=== PATIENT | female | born 1970 | race Caucasian/White ===

== ENCOUNTER 2023-03-21 21:43 | Emergency (ER) | payer BC, SELFPAY ==
[2023-03-21 21:51] VITALS: BP 158/102; PULSE 83; RESP 16; TEMP 36.8; O2SAT 98; BMI 28.4
--- NOTE | 2023-03-21 22:49 | XR_ITS ---
[facility] [place] [id number] Patient Name: LARISSA BLEVINS MRN: [id number] date: 1970 Sex: F Assigned Patient Location: ED.MAIN Current Patient Location: ER Accession/Order Number: [id number] Exam Date: 03/21/2023 23:16 Report Date: 03/21/2023 23:36 At the request of: MAGAN HILLMAN Procedure: XR hip RT 2V w/ pelvis EXAM: XR hip RT 2V w/ pelvis HISTORY: pain COMPARISON: None. TECHNIQUE: 3 view study FINDINGS: There is a left total hip prosthesis. The femoral stem is not completely included on the study. There is significant right hip joint space narrowing with marginal osteophytosis of the right femoral head. The symphysis pubis and sacroiliac joints are satisfactorily maintained. IMPRESSION: Advanced degenerative changes at the right hip. Left total hip arthroplasty without apparent hardware complication. Electronically authenticated by: Shaji VASQUEZ Date: 03/21/2023 23:36
--- NOTE | 2023-03-21 22:50 | ED_ITS ---
HPI - Extremity Injury (Lower) General Chief Complaint: Extremity Injury, Lower Stated Complaint: HIP PAIN Time Seen by Provider: 03/21/23 22:43 Source: patient Mode of arrival: walk-in History of Present Illness HPI Narrative: right hip pain. States she stepped off the riding lawnmower and experienced acute pain of her right hip. States pain radiates to her groin. Has known history of arthritis. Past history of left HERNANDEZ and believes she needs her right hip replaced also. Denies pain of her back. Denies lower extremity numbness or weakness Related Data Allergies Allergy/AdvReac Type Severity Reaction Status Date / Time No Known Drug Allergies Allergy Verified 03/21/23 22:02 Review of Systems ROS Status of ROS 10 or more systems reviewed and unremarkable except as noted in history and below [facility] Social History Smoking status: Never smoker Exam Constitutional Vital Signs - 24 hr 03/21/23 21:51 Temperature 98.3 F Pulse Rate [Monitor Left] 83 Respiratory Rate 16 Blood Pressure [Left Arm] 158/102 H Pulse Oximetry 98 Oxygen Delivery Method Room Air Common normals: no apparent distress and oriented x3 HENMT Common normals: normocephalic and head/scalp atraumatic Eye Common normals: EOMs intact bilaterally and conjunctivae normal Respiratory Common normals: normal respiratory effort, no retractions, no use of accessory muscles and clear to auscultation bilaterally Cardio Common normals: regular rate, regular rhythm, S1 normal heart sound and S2 normal heart sound GI Common normals: Normal to inspection, nondistended, normoactive bowel sounds present and non-tender Back & Pelvis Common normals: no CVA tenderness, thoracic and lumbar spine normal to inspection and no thoracic nor lumbar tenderness Extremity Other: right hip tenderness Neuro Common normals: oriented x3, CN's II-XII intact bilaterally, moves all extremities and no focal motor deficits Psych Appearance: grossly normal Course Vital Signs Vital signs: Vital Signs Temperature 98.3 F 03/21/23 21:51 Pulse Rate 83 03/21/23 21:51 Respiratory Rate 16 03/21/23 21:51 Blood Pressure 158/102 H 03/21/23 21:51 Pulse Oximetry 98 03/21/23 21:51 Oxygen Delivery Method Room Air 03/21/23 21:51 Temperature 98.3 F 03/21/23 21:51 Pulse Rate 83 03/21/23 21:51 Respiratory Rate 16 03/21/23 21:51 Blood Pressure 158/102 H 03/21/23 21:51 Pulse Oximetry 98 03/21/23 21:51 Oxygen Delivery Method Room Air 03/21/23 21:51 MDM - Extremity Injury (Lower) MDM Narrative Medical decision making narrative: presents complaining of pain right hip. xray with advanced arthritis of the hip. Patient feeling better after pain medication in the department. Discharged home to follow up with her doctor Discharge Plan Discharge Chief Complaint: Extremity Injury, Lower Clinical Impression: Arthralgia of hip, right Patient Disposition: Home, Self-Care Instructions: Arthritis (ED) Additional Instructions: follow up with your family doctor Stand Alone Forms: Portal Instructions Referrals: Physician,Non-Staff, MD [Primary Care Provider] - 1 week
[2023-03-21] MEDS: FENTANYL CITRATE/PF 100 MCG/2 ML VIAL IM (22:58)
[2023-03-21 23:43] VITALS: PULSE 63; RESP 16; O2SAT 97
[2023-03-22] MEDS: HYDROCODONE/ACETAMINOPHEN 5-325 MG TABLET 4 TAB PO (00:10)
== END 2023-03-22 00:17 | disposition home or self-care (01) ==
PROVIDERS: Emergency Provider Internal Medicine
DX: M25.551 Pain in right hip (principal); Z96.642 Presence of left artificial hip joint
CPT/HCPCS: 73502; 96372; 99284

== ENCOUNTER 2023-09-16 16:36 | Emergency (ER) | payer BC, SELFPAY ==
[2023-09-16 16:38] VITALS: BP 176/88; PULSE 92; RESP 18; TEMP 36.9; O2SAT 99; BMI 34.5
--- NOTE | 2023-09-16 17:06 | XR_ITS ---
The [address] [address] Patient Name: LARISSA BLEVINS MRN: [id number] date: 1970 Sex: F Assigned Patient Location: ER Current Patient Location: ER Accession/Order Number: [id number] Exam Date: 09/16/2023 17:15 Report Date: 09/16/2023 18:21 At the request of: ANAHY KENNEY Procedure: XR hip LT 2V w/ pelvis EXAM: XR hip LT 2V w/ pelvis, CT hip LT wo con HISTORY: Hip pain COMPARISON: None. TECHNIQUE: AP pelvis and 2 views of the left hip. Axial CT imaging was performed through the left hip. Sagittal and coronal reformatted/reconstructed sequences were performed FINDINGS: The prosthesis is best evaluated on the x-rays secondary to beam hardening metallic artifact. The prosthesis exhibits no fracture, dislocation, subluxation. No adjacent lucency. The [place] bone exhibits no fracture, dislocation, subluxation or osseous lesion. Moderate to severe degenerative changes of the right hip joint consistent with symmetric joint space loss and subchondral changes of the femoral head and acetabulum. The sacroiliac joints and pubic symphysis are unremarkable. No visualized bowel obstruction. The superficial subcutaneous soft tissues are free of edema, hematoma, mass or cyst. No visualized muscle atrophy or fatty infiltration. No osseous lesion, fracture, dislocation or subluxation. Joint spaces are normal. No visualized effusion. No visualized soft tissue edema. XR/XR hip LT 2V w/ pelvis IMPRESSION: No visualized acute abnormality Electronically authenticated by: JOSE J TORRES Date: 09/16/2023 18:21
--- NOTE | 2023-09-16 17:06 | ED.GENADUL1 ---
HPI - General Adult General Chief complaint: Extremity Injury, Lower Stated complaint: LE PAIN Time Seen by Provider: 09/16/23 16:40 Source: patient Mode of arrival: walk-in History of Present Illness HPI narrative: Patient suddenly experienced left hip pain while walking around - no known injury and no slip, trip or fall or other known activity to account for the pain. Describes it as a burning sensation throughout the left hip that then radiates down into the left thigh. She is able to bear weight but it is painful. No low back pain or other symptoms. No new sensory changes or weakness in the left LE. Related Data Previous Rx's Medication Instructions Recorded nabumetone 750 mg tablet 750 mg PO BID PRN pain #14 tabs 09/16/23 Allergies Allergy/AdvReac Type Severity Reaction Status Date / Time No Known Drug Allergies Allergy Verified 03/21/23 22:02 PFSH PFS Social History Smoking status: Never smoker Exam Narrative Exam Narrative: Nurses notes and vital signs reviewed and patient is not hypoxic. afebrile General: Well-appearing and in no apparent distress. Skin: Warm, dry, no pallor noted. No rash. Eye: Pupils are equal, round and EOMI. No scleral icterus. Ears, Nose, Mouth, and Throat: TM are clear, no posterior oropharynx erythema or nasal mucosal hypertrophy, uvula is mid-line Oral mucosa is moist Cardiovascular: Normal peripheral perfusion Respiratory: No accessory muscle use or respiratory distress. Back: No midline lumbar vertebral tenderness. No buttocks or posterior pelvis tenderness Musculoskeletal: Left hip = tender throughout. Decreased ROM due to the pain. Left thigh tenderness without swelling or mass. No calf or popliteal tenderness, no lower extremity edema/swelling Neurological: A&O x4. No cranial nerve dysfunction observed. No truncal ataxia. Moves all extremities. Sensation intact. Psychiatric: Cooperative and interactive. Normal mood and affect. Constitutional Vital Signs, click to edit/add: Last Vital Signs Temp 98.5 F 09/16/23 16:38 Pulse 92 H 09/16/23 16:38 Resp 18 09/16/23 16:38 BP 176/88 H 09/16/23 16:38 Pulse Ox 99 09/16/23 16:38 O2 Del Method Room Air 09/16/23 16:38 Course Vital Signs Vital signs: Vital Signs Temperature 98.5 F 12/16/23 16:38 Pulse Rate 92 H 09/16/23 16:38 Respiratory Rate 18 09/16/23 16:38 Blood Pressure 176/88 H 09/16/23 16:38 Pulse Oximetry 99 09/16/23 16:38 Oxygen Delivery Method Room Air 09/16/23 16:38 Temperature 98.5 F 09/16/23 16:38 Pulse Rate 92 H 09/16/23 16:38 Respiratory Rate 18 09/16/23 16:38 Blood Pressure 176/88 H 09/16/23 16:38 Pulse Oximetry 99 09/16/23 16:38 Oxygen Delivery Method Room Air 09/16/23 16:38 Medical Decision Making MDM Narrative Medical decision making narrative: xrays left hip and pelvis obtained. Xrays did not reveal any pelvic or femur fracture - hardware intact and in place without compromise. Patient sent for CT hip for further evaluation. Neither XR or CT identified anything worrisome to account for the patient's pain. She was discharged home with a work excuse and prescribed Relafen to take for the pain. Encouraged to rest and was given a work excuse. Imaging Data ct hip: Radiologist's impression: Patient Name: LARISSA BLEVINS MRN: [id number] date: 1970 Sex: F Assigned Patient Location: ER Current Patient Location: ER Accession/Order Number: [id number] Exam Date: 09/16/2023 17:58 Report Date: 09/16/2023 18:21 At the request of: ANAHY KENNEY Procedure: CT hip LT wo con EXAM: XR hip LT 2V w/ pelvis, CT hip LT wo con HISTORY: Hip pain COMPARISON: None. TECHNIQUE: AP pelvis and 2 views of the left hip. Axial CT imaging was performed through the left hip. Sagittal and coronal reformatted/reconstructed sequences were performed FINDINGS: The prosthesis is best evaluated on the x-rays secondary to beam hardening metallic artifact. The prosthesis exhibits no fracture, dislocation, subluxation. No adjacent lucency. The [place] bone exhibits no fracture, dislocation, subluxation or osseous lesion. Moderate to severe degenerative changes of the right hip joint consistent with symmetric joint space loss and subchondral changes of the femoral head and acetabulum. The sacroiliac joints and pubic symphysis are unremarkable. No visualized bowel obstruction. The superficial subcutaneous soft tissues are free of edema, hematoma, mass or cyst. No visualized muscle atrophy or fatty infiltration. No osseous lesion, fracture, dislocation or subluxation. Joint spaces are normal. No visualized effusion. No visualized soft tissue edema. IMPRESSION: No visualized acute abnormality Electronically authenticated by: JOSE J TORRES Date: 09/16/2023 18:21 xr hip: My impression: NAD Radiologist's impression: Patient Name: LARISSA BLEVINS MRN: [id number] date: 1970 Sex: F Assigned Patient Location: ER Current Patient Location: ER Accession/Order Number: [id number] Exam Date: 09/16/2023 17:15 Report Date: 09/16/2023 18:21 At the request of: ANAHY KENNEY Procedure: XR hip LT 2V w/ pelvis EXAM: XR hip LT 2V w/ pelvis, CT hip LT wo con HISTORY: Hip pain COMPARISON: None. TECHNIQUE: AP pelvis and 2 views of the left hip. Axial CT imaging was performed through the left hip. Sagittal and coronal reformatted/reconstructed sequences were performed FINDINGS: The prosthesis is best evaluated on the x-rays secondary to beam hardening metallic artifact. The prosthesis exhibits no fracture, dislocation, subluxation. No adjacent lucency. The [place] bone exhibits no fracture, dislocation, subluxation or osseous lesion. Moderate to severe degenerative changes of the right hip joint consistent with symmetric joint space loss and subchondral changes of the femoral head and acetabulum. The sacroiliac joints and pubic symphysis are unremarkable. No visualized bowel obstruction. The superficial subcutaneous soft tissues are free of edema, hematoma, mass or cyst. No visualized muscle atrophy or fatty infiltration. No osseous lesion, fracture, dislocation or subluxation. Joint spaces are normal. No visualized effusion. No visualized soft tissue edema. IMPRESSION: No visualized acute abnormality Electronically authenticated by: JOSE J TORRES Date: 09/16/2023 18:21 Discharge Plan Discharge Chief Complaint: Extremity Injury, Lower Clinical Impression: Acute pain of left hip Patient Disposition: Home, Self-Care Time of Disposition Decision: 18:28 Prescriptions / Home Meds: New nabumetone 750 mg tablet 750 mg PO BID PRN (Reason: pain) Qty: 14 0RF Instructions: Hip Pain (ED) Stand Alone Forms: Portal Instructions Referrals: Physician,Non-Staff, MD [Primary Care Provider] - 1 week
--- NOTE | 2023-09-16 17:34 | CT_ITS ---
The [address] [address] Patient Name: LARISSA BLEVINS MRN: [id number] date: 1970 Sex: F Assigned Patient Location: ER Current Patient Location: Accession/Order Number: [id number] Exam Date: 09/16/2023 17:58 Report Date: 09/16/2023 18:21 At the request of: ANAHY KENNEY Procedure: CT hip LT wo con EXAM: XR hip LT 2V w/ pelvis, CT hip LT wo con HISTORY: Hip pain COMPARISON: None. TECHNIQUE: AP pelvis and 2 views of the left hip. Axial CT imaging was performed through the left hip. Sagittal and coronal reformatted/reconstructed sequences were performed FINDINGS: The prosthesis is best evaluated on the x-rays secondary to beam hardening metallic artifact. The prosthesis exhibits no fracture, dislocation, subluxation. No adjacent lucency. The [place] bone exhibits no fracture, dislocation, subluxation or osseous lesion. Moderate to severe degenerative changes of the right hip joint consistent with symmetric joint space loss and subchondral changes of the femoral head and acetabulum. The sacroiliac joints and pubic symphysis are unremarkable. No visualized bowel obstruction. The superficial subcutaneous soft tissues are free of edema, hematoma, mass or cyst. No visualized muscle atrophy or fatty infiltration. No osseous lesion, fracture, dislocation or subluxation. Joint spaces are normal. No visualized effusion. No visualized soft tissue edema. CT/CT hip LT wo con IMPRESSION: No visualized acute abnormality Electronically authenticated by: JOSE J TORRES Date: 09/16/2023 18:21
[2023-09-16] MEDS: KETOROLAC TROMETHAMINE 10 MG TABLET PO (17:41)
[2023-09-16 18:32] VITALS: BP 140/90; PULSE 72; RESP 18; O2SAT 97
== END 2023-09-16 18:47 | disposition home or self-care (01) ==
PROVIDERS: Emergency Provider Emergency Medicine
DX: M25.552 Pain in left hip (principal)
CPT/HCPCS: 73502; 73700; 99284

== ENCOUNTER 2023-11-23 19:44 | Emergency (ER) | payer OTHER, SELFPAY ==
[2023-11-23 20:09] VITALS: BP 148/94; PULSE 82; RESP 18; TEMP 36.7; O2SAT 99; BMI 34.4
--- NOTE | 2023-11-23 20:13 | XR_ITS ---
The [address] [address] Patient Name: LARISSA BLEVINS MRN: [id number] date: 1970 Sex: F Assigned Patient Location: ER Current Patient Location: ER Accession/Order Number: [id number] Exam Date: 11/23/2023 21:08 Report Date: 11/23/2023 21:22 At the request of: MAGAN HILLMAN Procedure: XR foot LT min 3V EXAM: XR foot LT min 3V HISTORY: swelling/injury COMPARISON: None. TECHNIQUE: 3 views of the left foot are performed. FINDINGS: There is deformity to the distal fifth metatarsal diaphysis consistent with prior trauma. The bones are demineralized. There are degenerative changes within the midfoot. There is a plantar calcaneal spur, and an enthesophyte at the insertion of the Achilles tendon. No acute fracture is seen. XR/XR foot LT min 3V IMPRESSION: Osteopenia with posttraumatic and degenerative changes. No acute fracture is identified. Electronically authenticated by: ALIS CLARK Date: 11/23/2023 21:22
[2023-11-23 22:37] VITALS: BP 161/97; PULSE 85; RESP 16; O2SAT 97
--- NOTE | 2023-11-23 22:39 | ED_ITS ---
HPI - Extremity Injury (Lower) General Chief Complaint: Extremity Injury, Lower Stated Complaint: LOWER EXTREMITY INJURY Time Seen by Provider: 11/23/23 22:34 Source: patient Mode of arrival: walk-in Limitations: no limitations History of Present Illness HPI Narrative: stood up yesterday on her left foot and felt a pop along the outside of the foot. States pain radiates above her ankle. Increased pain river with walking. Related Data Home Medications Medication Instructions Recorded Confirmed bupropion HCl 150 mg 24 hr tablet, mg PO 11/23/23 extended release estradiol 0.01% (0.1 mg/gram) vaginal 11/23/23 vaginal cream levothyroxine 175 mcg tablet mcg 11/23/23 Previous Rx's Medication Instructions Recorded nabumetone 750 mg tablet 750 mg PO BID PRN pain #14 tabs 09/16/23 Allergies Allergy/AdvReac Type Severity Reaction Status Date / Time No Known Drug Allergies Allergy Verified 11/23/23 20:11 Review of Systems ROS Status of ROS 10 or more systems reviewed and unremark able except as noted in history and below PFSH PFS Social History Smoking status: Never smoker Exam Constitutional Vital Signs, click to edit/add: Last Vital Signs Temp 98.1 F 11/23/23 20:09 Pulse 82 11/23/23 20:09 Resp 18 11/23/23 20:09 BP 148/94 H 11/23/23 20:09 Pulse Ox 99 11/23/23 20:09 O2 Del Method Room Air 11/23/23 20:09 Common normals: oriented x3, healthy appearing, alert and well nourished Eye Common normals: EOMs intact bilaterally and conjunctivae normal Respiratory Common normals: normal respiratory effort, no retractions and no use of accessory muscles Cardio Common normals: regular rate, regular rhythm and S1 normal heart sound Extremity Other: mild tenderness left foot. no deformity. mild swelling Neuro Common normals: oriented x3, CN's II-XII intact bilaterally, moves all extremities and no focal motor deficits Psych Appearance: grossly normal Course Vital Signs Vital signs: Vital Signs Temperature 98.1 F 11/23/23 20:09 Pulse Rate 82 11/23/23 20:09 Respiratory Rate 18 11/23/23 20:09 Blood Pressure 148/94 H 11/23/23 20:09 Pulse Oximetry 99 11/23/23 20:09 Oxygen Delivery Method Room Air 11/23/23 20:09 Temperature 98.1 F 11/23/23 20:09 Pulse Rate 82 11/23/23 20:09 Respiratory Rate 18 11/23/23 20:09 Blood Pressure 148/94 H 11/23/23 20:09 Pulse Oximetry 99 11/23/23 20:09 Oxygen Delivery Method Room Air 11/23/23 20:09 MDM - Extremity Injury (Lower) MDM Narrative Medical decision making narrative: presents with acute ligamentous type injury to her left foot. States she just stood up and developed pain. no deformity of the foot. has mild swelling. xray neg for fracture. Patient placed in cam boot and discharged to follow up with orthopedics Imaging Data Chest x-ray: Radiologist's impression: ITS Impressions Foot X-Ray 11/23/23 20:13 IMPRESSION: Osteopenia with posttraumatic and degenerative changes. No acute fracture is identified. Electronically authenticated by: ALIS CLARK Date: 11/23/2023 21:22 Discharge Plan Discharge Chief Complaint: Extremity Injury, Lower Clinical Impression: Sprain of foot, left Prescriptions / Home Meds: No Action nabumetone 750 mg tablet 750 mg PO BID PRN (Reason: pain) Qty: 14 0RF levothyroxine 175 mcg tablet estradiol 0.01 % (0.1 mg/gram) cream VAGINAL bupropion HCl 150 mg tablet extended release 24 hr PO Instructions: Foot Sprain (ED) Additional Instructions: follow up with Dr Luna early next week Stand Alone Forms: Portal Instructions Referrals: Physician,Non-Staff, MD [Primary Care Provider] - 1 week
== END 2023-11-23 23:02 | disposition home or self-care (01) ==
PROVIDERS: Emergency Provider Internal Medicine
DX: S93.602A Unspecified sprain of left foot, initial encounter (principal); X50.9XXA Other and unspecified overexertion or strenuous movements or postures, initial encounter; Z79.899 Other long term (current) drug therapy; Z79.890 Hormone replacement therapy
CPT/HCPCS: 73630; 99283

== ENCOUNTER 2024-02-21 07:50 | Emergency (ER) | payer OTHER, SELFPAY ==
[2024-02-21 07:55] VITALS: BP 167/100; PULSE 90; TEMP 36.9; O2SAT 97; BMI 34.4
--- NOTE | 2024-02-21 08:26 | XR_ITS ---
[address] [address] Patient Name: LARISSA BLEVINS MRN: [id number] date: 1970 Sex: F Assigned Patient Location: ER Current Patient Location: ER Accession/Order Number: [id number] Exam Date: 02/21/2024 08:42 Report Date: 02/21/2024 09:26 At the request of: BISMARK BRANDON Procedure: XR hip RT 2V w/ pelvis PROCEDURE: XR hip RT 2V w/ pelvis COMPARISON: 03/31/2023 HISTORY: pain FINDINGS: BONES:Left hip arthroplasty. Severe right hip osteoarthritis with [id number] articulation, bony remodeling and subchondral degenerative changes SOFT TISSUES:Negative. No visible soft tissue swelling. EFFUSION:None visible. OTHER: Negative. XR/XR hip RT 2V w/ pelvis IMPRESSION: Progression of severe right hip osteoarthritis Electronically authenticated by: JOSE J DOW Date: 02/21/2024 09:26
[2024-02-21] MEDS: KETOROLAC TROMETHAMINE 60 MG/2 ML VIAL IM (08:52)
[2024-02-21] MEDS: ORPHENADRINE 60 MG/ 2 ML VIAL IM (08:52)
--- NOTE | 2024-02-21 09:33 | ED.GENADUL1 ---
HPI HPI - General Adult General Chief complaint: Extremity Problem, Nontraumatic Stated complaint: LOWER RIGHT EXTREMITY PAIN Time Seen by Provider: 02/21/24 08:05 Source: patient Mode of arrival: Wheelchair Limitations: no limitations History of Present Illness HPI narrative: Patient presents to the ED complaining of right-sided hip pain that radiates down her thigh. She has a history of a back surgery but she is unsure what the surgery was. She does have a history of a left hip replacement x 2 in the past. This was for severe osteoarthritis and degenerative changes in her hip. She said her hip pain improved greatly after she got her left hip replaced but her right hip has been bad ever since. She said she has an orthopedic doctor and they did not want to do any hip replacement for another 5 years she has been following somebody for this hip pain. She said the past day or so its gotten a lot worse with pain and radiation of the pain down that right leg. She denies back pain injury twisting or fall. She denies loss of bowel or bladder habits and denies decreased sensation or paralysis of the right leg. Related Data Home Medications ?Medication ?Instructions ?Recorded ?Confirmed bupropion HCl 150 mg 24 hr tablet, 150 mg PO DAILY 11/23/23 02/21/24 extended release estradiol 0.01% (0.1 mg/gram) 1 g vaginal DAILY 11/23/23 02/21/24 vaginal cream levothyroxine 175 mcg tablet 175 mcg PO DAILY 11/23/23 02/21/24 Previous Rx's ?Medication ?Instructions ?Recorded cyclobenzaprine 10 mg tablet 10 mg PO TID #20 tabs 02/21/24 methylprednisolone 4 mg tablets in 4 mg PO DAILY #1 ea 02/21/24 a dose pack (Medrol (Dimas)) oxycodone-acetaminophen 5 mg-325 1 tab PO Q6H #14 tabs 02/21/24 mg tablet (Percocet) Allergies Allergy/AdvReac Type Severity Reaction Status Date / Time No Known Drug Allergies Allergy Verified 11/23/23 20:11 Opioid HPI Opioid Management Most Recent Opioid Data: Last Pain Scale 6 02/21/24 09:19 Last MAR Pain Assessment 02/21/24 08:52 Review of Systems ROS Status of ROS 10 or more systems reviewed and unremarkable except as noted in history and below PFSH PFSH Social History Smoking status: Never smoker Exam Narrative Exam Narrative: Time Seen: [] Vital Signs: [Per nurse's notes.] General: [Alert] Skin: [Warm, dry, no rash.] Head: [Normocephalic, atraumatic.] Neck: [Supple, trachea midline.] Eye: [Pupils are equal, round and reactive to light, extraocular movements are intact, normal conjunctiva.] Ears, nose, mouth and throat: oral mucosa moist. Cardiovascular: [Regular rate and rhythm, no murmur.] Respiratory: [Lungs are clear to auscultation, respirations are non-labored, breath sounds are equal.] Chest wall: [No tenderness, no deformity.] Gastrointestinal: [Soft, nontender, non distended, normal bowel sounds.] MSK: 5 out of 5 muscle strength x 4 extremities no calf pain or edema. Tenderness to palpation in the right lateral hip and right buttock and SI joint. Normal distal pulses and sensation. Pain with range of motion but muscle strength intact. Lymphatics: [No lymphadenopathy.] Psychiatric: [Cooperative, appropriate mood & affect.] Neurological: [Alert and oriented to person, place, time, and situation, no focal neurological deficit observed.] Constitutional Vital Signs, click to edit/add: Last Vital Signs Temp 98.4 F 02/21/24 07:55 Pulse 90 02/21/24 07:55 Resp 18 02/21/24 07:55 BP 167/100 H 02/21/24 07:55 Pulse Ox 97 02/21/24 07:55 O2 Del Method Room Air 02/21/24 07:55 Course Vital Signs Vital signs: Vital Signs Temperature 98.4 F 02/21/24 07:55 Pulse Rate 90 02/21/24 07:55 Respiratory Rate 18 02/21/24 07:55 Blood Pressure 167/100 H 02/21/24 07:55 Pulse Oximetry 97 02/21/24 07:55 Oxygen Delivery Method Room Air 02/21/24 07:55 Temperature 98.4 F 02/21/24 07:55 Pulse Rate 90 02/21/24 07:55 Respiratory Rate 18 02/21/24 07:55 Blood Pressure 167/100 H 02/21/24 07:55 Pulse Oximetry 97 02/21/24 07:55 Oxygen Delivery Method Room Air 02/21/24 07:55 Medical Decision Making MDM Narrative Medical decision making narrative: Patient is feeling better after IM injections of Norflex and Toradol. X-ray shows progression of severe osteoarthritis of the hip. I instructed the patient she will need to follow-up with her Ortho as this is worsening and she may need hip replacement on the right. Will send her home with pain medication muscle relaxer and steroid pack. Patient is not diabetic. Return to ED if worsening symptoms otherwise follow-up with Ortho. Patient is comfortable care plan for home. Differential Diagnosis Differential Diagnosis: Arthritis, occult fracture, lumbar degenerative changes Medical Records Medical records reviewed: Yes I reviewed the patient's medical records Imaging Data hip xr: Radiologist's impression: ITS Impressions Hip/Pelvis X-Ray 02/21/24 08:26 IMPRESSION: Progression of severe right hip osteoarthritis Electronically authenticated by: JOSE J DOW Date: 02/21/2024 09:26 Discharge Plan Discharge Stand Alone Forms: Portal Instructions Chief Complaint: Extremity Problem, Nontraumatic Clinical Impression: Arthralgia of hip, right Patient Disposition: Home, Self-Care Time of Disposition Decision: 09:36 Mode of Transportation: Private Vehicle Prescriptions / Home Meds: New oxycodone-acetaminophen [Percocet] 5-325 mg tablet 1 tab PO Q6H Qty: 14 0RF methylprednisolone [Medrol (Dimas)] 4 mg tablets,dose pack 4 mg PO DAILY Qty: 1 0RF cyclobenzaprine 10 mg tablet 10 mg PO TID Qty: 20 0RF No Action levothyroxine 175 mcg tablet 175 mcg PO DAILY estradiol 0.01 % (0.1 mg/gram) cream 1 g VAGINAL DAILY bupropion HCl 150 mg tablet extended release 24 hr 150 mg PO DAILY Print Language: Haitian Instructions: Arthralgia (ED) Referrals: Physician,Non-Staff, [Primary Care Provider] - 1 week Jacobo Luna MD [Physician] - 1 week
== END 2024-02-21 09:54 | disposition home or self-care (01) ==
PROVIDERS: Emergency Provider Emergency Medicine
DX: M25.551 Pain in right hip (principal); M16.11 Unilateral primary osteoarthritis, right hip; Z96.642 Presence of left artificial hip joint
CPT/HCPCS: 73502; 96372; 99284

== ENCOUNTER 2024-10-20 16:30 | Emergency (ER) | payer OTHER, SELFPAY ==
[2024-10-20] VITALS (27 sets, daily range): BP systolic 78–103; BP diastolic 51–76; PULSE 69–84; TEMP 36.8–37.1; O2SAT 71–100; BMI 34.0
--- NOTE | 2024-10-20 16:41 | ECG_ITS ---
The 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
[2024-10-20 16:51] LABS: Hematocrit 37.4 % (36.0-48.0); Hemoglobin 12.4 g/dL (12.0-16.0); Mean Corpuscular HGB Conc 33.2 g/dL (29.9-35.2); Mean Corpuscular Hemoglobin 30.3 pg (26.7-34.0); Mean Corpuscular Volume 91.4 fL (81.0-99.0); Mean Platelet Volume 10.4 fL (9.5-13.5); Platelet Count 165 10^3/uL (150-450); Red Blood Count 4.09 10^6/uL (4.20-5.40); Red Cell Distribution Width 11.9 % (11.0-15.0); White Blood Count 3.8 10^3/uL (4.0-11.0)
--- NOTE | 2024-10-20 16:52 | CT_ITS ---
The [address] [address] Patient Name: LARISSA BLEVINS MRN: [facility]:[id number] date: 1970 Sex: F Assigned Patient Location: ED.MAIN Current Patient Location: ED.MAIN Accession/Order Number: [id number] Exam Date: 10/20/2024 17:20 Report Date: 10/20/2024 18:11 At the request of: MARY NAVA Procedure: CT head/brain wo con EXAM: CT Head Without Intravenous Contrast CLINICAL INDICATION: syncope TECHNIQUE: Axial computed tomography images of the head/brain without intravenous contrast. This CT exam was performed using one or more of the following dose reduction techniques: automated exposure control, adjustment of the mA and/or kV according to patient size, and/or use of iterative reconstruction technique. COMPARISON: No relevant prior studies available. FINDINGS: BRAIN AND EXTRA-AXIAL SPACES: Unremarkable. No hemorrhage. No significant white matter disease. No edema. No ventriculomegaly. BONES/JOINTS: Unremarkable. No acute fracture. SOFT TISSUES: Unremarkable. SINUSES: Unremarkable as visualized. No acute sinusitis. MASTOID AIR CELLS: Unremarkable as visualized. No mastoid effusion. CT/CT head/brain wo con IMPRESSION: No CT evidence of acute intracranial pathology without intravenous contrast. Electronically authenticated by: CHELITA GONZALES Date: 10/20/2024 18:11
[2024-10-20 17:05] LABS: INR 0.95; Prothrombin Time 10.1 sec (9.0-11.6)
[2024-10-20 17:11] LABS: Alanine Aminotransferase 18 U/L (14-59); Albumin Globulin Ratio 1.1; Albumin Level 3.9 g/dL (3.4-5.0); Alkaline Phosphatase 84 U/L (46-116); Anion Gap 12.9; Aspartate Amino Transferase 20 U/L (15-37); Bilirubin Total 0.3 mg/dL (0.2-1.0); Calcium 9.2 mg/dL (8.5-10.1); Carbon Dioxide 26.7 mmol/L (21.0-32.0); Chloride 100 mmol/L (98-107); Estimated GFR (African America 24 (>=60 mL/min/1.73m^2); Estimated GFR (Non-African Ame 20 (>=60 mL/min/1.73m^2); Globulin 3.4 g/dL; Glucose 115 mg/dL (74-106); Magnesium 2.5 mg/dL (1.8-2.4); Potassium 4.6 mmol/L (3.5-5.1); Sodium 135 mmol/L (136-145); Total Protein 7.3 g/dL (6.4-8.2); Troponin I High Sensitivity <4.0 pg/mL (4.0-51.3)
[2024-10-20 17:36] LABS: Ethanol <3 mg/dL
[2024-10-20 17:43] LABS: Band Neutrophils Absolute 0.1 10^3/uL (0.0-0.3); Basophils Abs Manual 0.03 10^3/uL (0.00-0.10); Eosinophils Absolute Manual 0.07 10^3/uL (0.00-0.70); Segmented Neut Absolute Manual 3.26 10^3/uL (1.4-6.5)
[2024-10-20 17:44] LABS: Anisocytosis 1+
[2024-10-20] MEDS: 0.9 % SODIUM CHLORIDE 1,000 ML 1000 ML IV (17:48)
--- NOTE | 2024-10-20 18:01 | ED_ITS ---
HPI - Dizziness General Chief Complaint: Weakness Stated Complaint: SYNCOPE Time Seen by Provider: 10/20/24 16:40 Source: patient Mode of arrival: ambulance History of Present Illness HPI Narrative: The patient has come to the ER with dizziness for the last few hours as she mentioned that she was sitting at the table in her kitchen when she passed out for few seconds. Patient was brought to us by the EMS after her daughter called Patient that she have a history of congestive heart failure and she also mentioned that she does take some diuretic at home Related Data Home Medications ?Medication ?Instructions ?Recorded ?Confirmed estradiol 0.01% (0.1 mg/gram) 1 g vaginal DAILY 11/23/23 10/20/24 vaginal cream levothyroxine 175 mcg tablet 175 mcg PO DAILY 11/23/23 10/20/24 aspirin 81 mg tablet,delayed 81 mg PO DAILY 10/20/24 10/20/24 release (Adult Low Dose Aspirin) bumetanide 1 mg tablet 2 mg PO DAILY 10/20/24 10/20/24 bupropion HCl 300 mg 24 hr tablet, 300 mg PO DAILY 10/20/24 10/20/24 extended release buspirone 7.5 mg tablet 7.5 mg PO BID 10/20/24 10/20/24 cariprazine 1.5 mg capsule 1.5 mg PO DAILY 10/20/24 10/20/24 (Vraylar) empagliflozin 10 mg tablet 10 mg PO DAILY 10/20/24 10/20/24 (Jardiance) metoprolol succinate 50 mg 50 mg PO DAILY 10/20/24 10/20/24 tablet,extended release 24 hr sacubitril 24 mg-valsartan 26 mg 1 tab PO BID 10/20/24 10/20/24 tablet (Entresto) spironolactone 100 mg tablet 100 mg PO DAILY 10/20/24 10/20/24 trazodone 50 mg tablet 100 mg PO QPM 10/20/24 10/20/24 Allergies Allergy/AdvReac Type Severity Reaction Status Date / Time No Known Drug Allergies Allergy Verified 11/23/23 20:11 Review of Systems ROS Status of ROS 10 or more systems reviewed and unremark able except as noted in history and below PFSH PFSH Social History Smoking status: Never smoker Little interest or pleasure in doing things: not at all Feeling down, depressed, or hopeless: not at all Exam Narrative Exam Narrative: Nurses notes and vital signs reviewed and patient is not hypoxic. General: Well-appearing and in no apparent distress. Skin: Warm, dry, no pallor noted. No rash. Head: Normocephalic, atraumatic. Neck: Supple, non-tender. Eye: Pupils are equal, round and EOMI. No scleral icterus. Ears, Nose, Mouth, and Throat: TM are clear, no nasal mucosal hypertrophy. Or al mucosa is moist, no posterior oropharynx erythema, uvula is mid-line Cardiovascular: Regular Rate and Rhythm without murmur, gallop or rub. Respiratory: No accessory muscle use or respiratory distress. Lungs are clear to auscultation, no wheezing, rales or rhonchi Chest Wall: no tenderness Back: No midline thoracic or lumbar vertebral tenderness. No CVA tenderness Musculoskeletal: normal ROM, no calf or popliteal tenderness, no lower extremity edema/swelling GI: Abdomen is soft, non-distended. Normal bowel sounds. No masses appreciated. No tenderness to palpation. No rebound, guarding, or rigidity noted. Neurological: A&O x4. No cranial nerve dysfunction observed. No truncal ataxia. Moves all extremities. Sensation intact. Psychiatric: Cooperative and interactive. Normal mood and affect. Constitutional Vital Signs, click to edit/add: Last Vital Signs Temp 98.3 F 10/20/24 16:34 Pulse 69 10/20/24 17:45 Resp 14 10/20/24 17:45 BP 86/56 L 10/20/24 17:45 Pulse Ox 100 10/20/24 17:45 O2 Del Method Room Air 10/20/24 16:34 Course Vital Signs Vital signs: Vital Signs Temperature 98.3 F 10/20/24 16:34 Pulse Rate 84 10/20/24 16:34 Respiratory Rate 18 10/20/24 16:34 Blood Pressure 92/61 10/20/24 16:34 Pulse Oximetry 92 L 10/20/24 16:34 Oxygen Delivery Method Room Air 10/20/24 16:34 Temperature 98.3 F 10/20/24 16:34 Pulse Rate 69 10/20/24 17:45 Respiratory Rate 14 10/20/24 17:45 Blood Pressure 86/56 L 10/20/24 17:45 Pulse Oximetry 100 10/20/24 17:45 Oxygen Delivery Method Room Air 10/20/24 16:34 MDM - Dizziness MDM Narrative Medical decision making narrative: The patient EKG in the ER showing sinus rhythm with a heart rate of [address] elevation or depression The patient CBC and chemistry is showing acute kidney injury Awaiting the CT of the head the patient care was transferred Lab Data Labs: Lab Results 10/20/24 Range/Units 16:45 WBC 3.8 L (4.0-11.0) 10^3/uL RBC 4.09 L (4.20-5.40) 10^6/uL Hgb 12.4 (12.0-16.0) g/dL Hct 37.4 (36.0-48.0) % MCV 91.4 (81.0-99.0) fL MCH 30.3 (26.7-34.0) pg MCHC 33.2 (29.9-35.2) g/dL RDW 11.9 (11.0-15.0) % Plt Count 165 (150-450) 10^3/uL MPV 10.4 (9.5-13.5) fL Seg Neuts % (Manual) 86.0 H (43.0-75.0) Band Neutrophils % 3.0 (0-5) % Lymphocytes % (Manual) 8.0 L (20.5-60.0) % Monocytes % (Manual) 0.0 L (1.7-12.0) % Eosinophils % (Manual) 2.0 (0.9-7.0) % Basophils % (Manual) 1.0 (0.2-2.0) % Neutrophils # (Manual) 3.26 (1.4-6.5) 10^3/uL Band Neutrophils # 0.1 (0.0-0.3) 10^3/uL Lymphocytes # (Manual) 0.30 L (1.20-3.80) 10^3/uL Monocytes # (Manual) 0.00 L (0.30-0.80) 10^3/uL Eosinophils # (Manual) 0.07 (0.00-0.70) 10^3/uL Basophils # (Manual) 0.03 (0.00-0.10) 10^3/uL Anisocytosis 1+ PT 10.1 (9.0-11.6) sec INR 0.95 Sodium 135 L (136-145) mmol/L Potassium 4.6 (3.5-5.1) mmol/L Chloride 100 (98-107) mmol/L Carbon Dioxide 26.7 (21.0-32.0) mmol/L Anion Gap 12.9 BUN 61.0 H (7.0-18.0) mg/dL Creatinine 2.54 H (0.55-1.02) mg/dL Est GFR ( Amer) 24 L (>=60 mL/min/1.73m^2) Est GFR (Non-Af Amer) 20 L (>=60 mL/min/1.73m^2) BUN/Creatinine Ratio 24.0 Glucose 115 H (74-106) mg/dL Calcium 9.2 (8.5-10.1) mg/dL Magnesium 2.5 H (1.8-2.4) mg/dL Total Bilirubin 0.3 (0.2-1.0) mg/dL AST 20 (15-37) U/L ALT 18 (14-59) U/L Alkaline Phosphatase 84 (46-116) U/L Troponin I High Sens <4.0 L (4.0-51.3) pg/mL Total Protein 7.3 (6.4-8.2) g/dL Albumin 3.9 (3.4-5.0) g/dL Globulin 3.4 g/dL Albumin/Globulin Ratio 1.1 Ethanol Quant <3 mg/dL Discharge Plan Discharge Patient Disposition: Still a Patient
[2024-10-20] MEDS: 0.9 % SODIUM CHLORIDE 1,000 ML 500 ML IV (18:17)
--- NOTE | 2024-10-20 19:38 | PC.NURSE ---
i walked into this patient's room to find this patient awake and alert sitting on the edge of the bed, i introduced him self to this patient and family members. updated her that we will get you up and see how you feel while you walk. this patient voices no concerns and shows no signs of distress
--- NOTE | 2024-10-20 19:59 | PC.NURSE ---
i gave this patient verbal and paper discharge orders and she voices yes to understanding these. at time of discharge this patient voices no concerns and shows no signs of distress
== END 2024-10-20 19:49 | disposition home or self-care (01) ==
PROVIDERS: Emergency Medicine; Emergency Provider Emergency Medicine
DX: R55 Syncope and collapse (principal); N17.9 Acute kidney failure, unspecified; R53.1 Weakness; I50.9 Heart failure, unspecified; I95.9 Hypotension, unspecified
CPT/HCPCS: 36415; 70450; 80053; 80320; 83735; 84484; 85007; 85027; 85610; 93005; 96360; 99285